=== PATIENT | male | born 1990 | race Caucasian/White ===

== ENCOUNTER 2016-11-09 13:53 | Emergency (ER) | payer OTHER ==
[~2016-11-09] VITALS: Ht 172.7 cm; Wt 70.9 kg
[~2016-11-09 13:53] MED LIST: CATAPRES0.3 MG PO; CLONIDINE HCL0.1 MG PO; DEPAKOTE500 MG PO; ERYTHROMYCIN-23.6 GM TP; LEVOTHYROXINE75 MCG PO; LITHIUM CARBON600 MG PO; SEROQUEL200 MG PO; TYLENOL325 M1 PO
[2016-11-09 14:38] LABS: HEMATOCRIT 44.3 % (38.0-50.0); MCH 31.7 PG (29.0-34.0); MCHC 34.1 G/DL (30.0-36.0); MCV 92.9 FL (86-99); MEAN PLAT.VOLUME 9.8 uM^3 (9.0-12.4); PLATELET COUNT 214 K/uL (156-360); RBC DIS.WIDTH-CV 12.6 % (11.8-14.6); RBC DIS.WIDTH-SD 43.2 % (39-53); RED BLOOD COUNT 4.77 M/uL (4.00-5.50)
[2016-11-09 14:45] LABS: CHLORIDE 105 mEq/L (99-109); POTASSIUM 4.6 mEq/L (3.7-5.4); SODIUM 141 mEq/L (136-147)
[2016-11-09 14:47] LABS: GLUCOSE 79 mg/dL (70-99)
[2016-11-09 14:48] LABS: ANION GAP 8 MEQ/L (2-14)
[2016-11-09 14:50] LABS: SERUM ETHYL ALCOHOL < 10 mg/dL
[2016-11-09 14:51] LABS: GFR ESTIMATE (CALCULATED) > 59 mL/min/
[2016-11-09 14:52] LABS: UREA NITROGEN (BUN) 18 mg/dL (9-23)
[2016-11-09 21:27] VITALS: BP 119/66
== END 2016-11-09 21:27 | disposition home or self-care (01) ==
LOC: EME 13:53
DX: F31.62 Bipolar disorder, current episode mixed, moderate (principal); F17.200 Nicotine dependence, unspecified, uncomplicated
CPT/HCPCS: 80048; 85027; 90839; 99281; 99284; G0480

== ENCOUNTER 2018-01-08 01:47 | Emergency (ER) | payer OTHER ==
[~2018-01-08] VITALS: Ht 172.7 cm; Wt 74.4 kg
[2018-01-08 02:00] VITALS: BP 129/85
[2018-01-08] MEDS ORDERED: NAPROSYN500 MG PO (03:36)
[2018-01-08] MEDS ORDERED: AFRIN,GENASAL D15 ML BOTH NARES (03:36)
[2018-01-08] MEDS ORDERED: TESSALON200 MG PO (03:36)
== END 2018-01-08 03:49 | disposition home or self-care (01) ==
LOC: EME 01:47
DX: S43.402A Unspecified sprain of left shoulder joint, initial encounter (principal); X50.0XXA Overexertion from strenuous movement or load, initial encounter; J06.9 Acute upper respiratory infection, unspecified; J02.9 Acute pharyngitis, unspecified; R42 Dizziness and giddiness; F17.200 Nicotine dependence, unspecified, uncomplicated
CPT/HCPCS: 73030; 87651 90; 99281; 99283